=== PATIENT | female | born 1985 | race Caucasian/White ===

== ENCOUNTER → 2016-10-18 | Outpatient (REF) | payer OTHER | LOC: M SFHCCLAY 15:47 | PROVIDERS: ATTEND Family Medicine | DX: R87.612 Low grade squamous intraepithelial lesion on cytologic smear of cervix (LGSIL) (principal) | CPT/HCPCS: 87070; 87491; 87591; G0123 ==

== ENCOUNTER → 2017-06-06 | Outpatient (REF) | payer OTHER | LOC: M SFHCCLAY 15:45 | PROVIDERS: ATTEND Family Medicine | DX: Z12.4 Encounter for screening for malignant neoplasm of cervix (principal); R87.612 Low grade squamous intraepithelial lesion on cytologic smear of cervix (LGSIL) ==

== ENCOUNTER → 2017-12-05 | Outpatient (CLI) | payer BC | LOC: M RAD 17:01 | DX: M25.561 Pain in right knee (principal); S83.31XA Tear of articular cartilage of right knee, current, initial encounter; W18.30XA Fall on same level, unspecified, initial encounter; Y92.009 Unspecified place in unspecified non-institutional (private) residence as the place of occurrence of the external cause | CPT/HCPCS: 73721 ==

== ENCOUNTER → 2018-08-22 | Outpatient (REF) | payer BC ==
[2018-08-22 19:12] LABS: BASO % 0.3 % (0.0-1.0); EOS # 0.1 10^3/uL (0.0-0.50); EOS % 1.4 % (0.0-3.0); HEMOGLOBIN 13.7 g/dl (12.0-15.5); LYMPH # 2.7 10^3/uL (1.5-4.5); MEAN CORPUSCULAR HEMOGLOBIN 31.6 pg (27.0-33.0); MEAN CORPUSCULAR HGB CONC 34.3 g/dl (32.0-36.5); MEAN CORPUSCULAR VOLUME 92.2 fl (80.0-96.0); MONO # 0.9 10^3/uL (0.0-0.8); MONO % 11.5 % (0.0-5.0); NEUTROPHILS # 4.1 10^3/uL (1.8-7.7); NEUTROPHILS % 52.4 % (36.0-66.0); PLATELET COUNT, AUTOMATED 315 10^3/uL (150-450); RED BLOOD COUNT 4.34 10^6/uL (4.00-5.40); WHITE BLOOD COUNT 7.9 10^3/uL (4.0-10.0)
[2018-08-22 20:40] LABS: CHLAMYDIA DNA AMPLIFICATION NEGATIVE (NEGATIVE); GC DNA AMPLIFICATION NEGATIVE (NEGATIVE)
[2018-08-24 12:53] LABS: HEPATITIS C VIRUS ABY INDEX 0.1 INDEX (<0.8); HIV 1&2 SCREEN CENTAUR NEGATIVE (NEGATIVE); RUBELLA IgG QUALITATIVE IMMUNE (IMMUNE)
== END ==
LOC: M LAB REF 08:25
PROVIDERS: ATTEND Advanced Practice Midwife
DX: Z3A.08 8 weeks gestation of pregnancy (principal); Z34.01 Encounter for supervision of normal first pregnancy, first trimester

== ENCOUNTER → 2018-09-18 | Outpatient (REF) | payer BC ==
[2018-09-21 14:22] LABS: HPV HYBRID CAPTURE II Positive (Negative)
== END ==
LOC: M LAB REF 13:18
PROVIDERS: ATTEND Specialist
DX: Z12.4 Encounter for screening for malignant neoplasm of cervix (principal); R87.612 Low grade squamous intraepithelial lesion on cytologic smear of cervix (LGSIL); N87.0 Mild cervical dysplasia; Z11.51 Encounter for screening for human papillomavirus (HPV)
CPT/HCPCS: 87624; G0123

== ENCOUNTER → 2018-09-19 | Outpatient (REF) | payer BC ==
[2018-09-21 10:27] LABS: TOXOPLASMA IgG ABY <3.0 IU/mL (0.0-7.1)
== END ==
LOC: M LAB REF 19:03
PROVIDERS: ATTEND Specialist
DX: Z34.82 Encounter for supervision of other normal pregnancy, second trimester (principal); Z3A.00 Weeks of gestation of pregnancy not specified

== ENCOUNTER → 2018-09-25 | Outpatient (CLI) | payer BC | LOC: M SMT 08:11 | PROVIDERS: ATTEND Specialist | DX: Z13.71 Encounter for nonprocreative screening for genetic disease carrier status (principal) ==

== ENCOUNTER → 2018-11-06 | Outpatient (CLI) | payer BC ==
--- NOTE | 2018-11-06 15:27 | REP ---
REASON: anatomy. PRIORS: None. Multiple ultrasonographic images of the gravid uterus show a single living intrauterine gestation in the cephalic presentation. Doppler interrogation of the heart shows a heart rate of 149 beats per minute. The placenta is anterior and now low lying. The cervix measures 3.2 cm in length and is closed. The subjective amniotic fluid volume is within normal limits. Evaluation of the maternal adnexal spaces showed no abnormalities. BPD 4.3 cm = 19 weeks 0 days HC 15.9 cm = 18 weeks 5 days AC 13.1 cm = 18 weeks 5 days FL 2.9 cm = 18 weeks 8 days The estimated weight is 256 grams which is at the 18th percentile for a 19 week 4 day gestational age. anatomical structures seen as unremarkable are as follows: Thalami, cavum septum pellucidum, cerebellum, cisterna magna, spine, cord insertion, three vessel umbilical cord, stomach, four chamber heart, ventricular outflow tracts, and extremities. The structures suboptimally visualized are as follows: Urinary bladder, upper lip, and the kidneys. IMPRESSION: Single living intrauterine gestation as described above with an estimated gestational age of 18 weeks 6 days via composite criteria and an estimated date of delivery of 04/03/2019 by today's exam. No anomalies were detected, however, I recommend a followup examination to better visualize those structures not well seen today as described above. Electronically Signed by Jordin Small DO 11/06/2018 04:07 P
== END ==
LOC: M RAD 13:45
PROVIDERS: ATTEND Specialist
DX: Z34.82 Encounter for supervision of other normal pregnancy, second trimester (principal); Z3A.18 18 weeks gestation of pregnancy

== ENCOUNTER → 2018-11-30 | Outpatient (CLI) | payer BC ==
--- NOTE | 2018-11-30 15:56 | REP ---
Obstetric sonography: History: Supervision of for anatomy. Findings: Scanning through the gravid uterus demonstrates a viable single intrauterine gestation in a cephalic lie. motion is observed. heart rate is recorded at 149 beats per minute. An anterior grade 0 placenta is seen without evidence of previa. Amniotic fluid is subjectively normal. Closed cervical length is 3.6 cm. No extrauterine abnormality is observed. There has been appropriate interval growth. spine is less than optimally seen today due to position, however, spine was visualized previously. The following anatomic structures are again identified and felt to be unremarkable: cranium, choroid plexus, cavum, cerebellum and posterior fossa, face and profile, lungs, four-chamber heart with left and right ventricular outflow tract views, diaphragm, left-sided stomach, abdominal wall cord insertion, three-vessel umbilical cord, kidneys and bladder, upper and lower extremities. Biometry chart: BPD 5.4 cm = 22 weeks 3 days HC 19.3 cm = 21 weeks 4 days AC 18.0 cm = 22 weeks 6 days FL 4.0 cm = 23 weeks 0 days HL 3.6 cm = 22 weeks 4 days HC/AC ratio normal 1.07. Cephalic index normal 0.79. Estimated weight 532 grams, 1 pound 2 ounces, 38th percentile for 23 weeks 0 days. Impression: Viable single intrauterine gestation at 22 weeks 3 days by today's composite criteria. Expected gestational age estimate based on prior sonography is 22 weeks 2 days. THADDEUS by prior sonography April 03, 2019. There has been appropriate interval growth. Electronically Signed by Elver Hameed MD 11/30/2018 07:59 P
== END ==
LOC: M RAD 12:01
PROVIDERS: ATTEND Advanced Practice Midwife
DX: Z34.82 Encounter for supervision of other normal pregnancy, second trimester (principal); Z3A.22 22 weeks gestation of pregnancy

== ENCOUNTER → 2018-12-26 | Outpatient (REF) | payer BC ==
[2018-12-26 20:47] LABS: HEMATOCRIT 37.5 % (36.0-47.0); HEMOGLOBIN 12.7 g/dl (12.0-15.5); MEAN CORPUSCULAR HEMOGLOBIN 32.4 pg (27.0-33.0); MEAN CORPUSCULAR HGB CONC 33.9 g/dl (32.0-36.5); MEAN CORPUSCULAR VOLUME 95.7 fl (80.0-96.0); PLATELET COUNT, AUTOMATED 283 10^3/uL (150-450); RED BLOOD COUNT 3.92 10^6/uL (4.00-5.40); WHITE BLOOD COUNT 9.7 10^3/uL (4.0-10.0)
== END ==
LOC: M LAB REF 18:56
PROVIDERS: ATTEND Advanced Practice Midwife
DX: Z34.02 Encounter for supervision of normal first pregnancy, second trimester (principal); Z3A.00 Weeks of gestation of pregnancy not specified

== ENCOUNTER → 2019-03-05 | Outpatient (REF) | payer BC | LOC: M LAB REF 12:40 | PROVIDERS: ATTEND Advanced Practice Midwife | DX: Z34.03 Encounter for supervision of normal first pregnancy, third trimester (principal) ==

== ENCOUNTER → 2019-03-06 | Outpatient (REF) | payer BC | LOC: M LAB REF 19:04 | PROVIDERS: ATTEND Advanced Practice Midwife | DX: Z34.03 Encounter for supervision of normal first pregnancy, third trimester (principal) ==

== ENCOUNTER 2019-03-22 23:07 | Inpatient (IN) | payer BC ==
[~2019-03-22] VITALS: Ht 170.2 cm; Wt 77.6 kg
[2019-03-23] VITALS (7 sets, daily range): BP systolic 109–122; BP diastolic 65–90
[2019-03-23] MEDS ORDERED: LACTATED RINGER'S 1000 ML IV STA (00:07)
[2019-03-23] MEDS ORDERED: BUTORPHANOL 2 MG/ML INJ (J0595) IV ONE (00:15)
[2019-03-23] MEDS ORDERED: PROMETHAZINE INJ 25 MG/ML VIAL (J2550) IV ONE (00:15)
--- NOTE | 2019-03-23 00:21 | HPEPDOC ---
Obstetrical History & Physical General Date of Admission March 22, 2019 History of Present Illness Chief Complaint: Contractions, term Information Provided By: Patient Age: 33 : 1 Term: 0 Pre-term: 0 Abortions: 0 Livin Care Care: Good Care Dating Final EDC: Mar 29, 2019 Final EDC by: LMP EGA at Admission: 39 Antepartum Course Height (inches): 67 Pre- weight (lbs.): 145 Admission Weight (lbs.): 171 Past Medical History Past Obstetrical History : Past Obstetrical History: Primgravida [employer] History: Abnormal Pap (LEEP 2013) Past Medical History Surgical History: Tonsilectomy Family History Significant Family History: No pertinent family hx Social History Marital Status: Single Family situation: Spouse/partner home Psychosocial History: No pertinent psych hx * Smoker: non-smoker Alcohol: Denies Drugs: denies Abuse Violence Screening Have you been hit/kicked/slapp: No Have you been sexually assault: No Imunizations Tdap status: current Allergies Coded Allergies: MS - Amoxicillin (Verified Allergy, Severe, ANAPHYLAXIS, 11/11/15) Physical Examination Physical Examination GENERAL: Alert and oriented times three. BREAST: . ABDOMEN: Gravid and non-tender to touch. FETUS: Is vertex (VTX) by sterile vaginal examination (SVE), fetus is vertex (V TX) by Maxime. HEART RATE: Regular rate and rhythm. LUNGS: Clear to auscultation (CTA). EXTREMITIES: No edema. No clonus. Deep tendon reflexes (DTRs) + 2. Pertinent Laboratoy Data Blood Type: O+ RBC Antibody Screen: Negative HIV: Negative Hepatitis B: Negative Hepatitis C: Negative Rapid Plasma Reagin: Nonreactive Rubella: Immune Chlamydia/Gonorrhea: Negative Group B Streptococcus: Negative Quad Screen Test: Negative (Panorama low risk) Glucose Tolerance Test: 99 Anatomy Ultrasound Ultrasound Date: Nov 06, 2018 Placenta Location: Anterior Normal Anatomy: Yes Placenta Previa: No Estimated Weight (grams): 256 Other Ultrasounds 08/22/18 dating 7w6d 11/30/18 f/u anatomy 532gm 38% 03/05/19 Vertex Steroid Therapy Steroid Therapy: No Vaginal Examination Dilation: 3 cm (-4) Effacement: 90% Station: -1 Cervical Consistency: Medium Cervical Position: Middle Presentation: Cephalic presentation Assessment Heart Rate (FHR): 150 Variability: Moderate Accelerations: Positive Decelerations: None Tocometer Frequency: every 2-5 min. Duration: greater than 60 seconds Strength: palpated as moderate Assessment/Plan Assessment Amelia is a 33-year-old (G)1 para (P)0-0-0-0 at 39+0 weeks by 7-week ultrasound. Presents to Labor and Delivery (L&D) with reports of UC since 1700. States she had an accupuncture appt today. Denies LOF or bleeding, fetus is active. Plan Admit and orient. Assignment Agent and consent. Diet: regular. Group B Streptococcus (GBS) negative. Labs and intravenous (IV) per unit protocol. Counseled on Pitocin and induction of labor (IOL). Lactated Ringers (LR): Bolus 500 mL, then saline lock. Plans to labor ad tracy Anticipate normal spontaneous delivery (). C-S as appropriate. Shannon Quiñones CNM Mar 23, 2019 00:21
[2019-03-23 00:42] LABS: HEMATOCRIT 37.6 % (36.0-47.0); HEMOGLOBIN 13.1 g/dl (12.0-15.5); MEAN CORPUSCULAR HEMOGLOBIN 32.9 pg (27.0-33.0); MEAN CORPUSCULAR HGB CONC 34.8 g/dl (32.0-36.5); MEAN CORPUSCULAR VOLUME 94.5 fl (80.0-96.0); PLATELET COUNT, AUTOMATED 264 10^3/uL (150-450); RED BLOOD COUNT 3.98 10^6/uL (4.00-5.40); WHITE BLOOD COUNT 12.6 10^3/uL (4.0-10.0)
[2019-03-23] MEDS ORDERED: OXYTOCIN 30 UNITS IN 0.9% NaCl 500ML IV BAG (J2590) As Ordered ONE (04:29)
[2019-03-23] MEDS ORDERED: OXYTOCIN DRIP 30 UNITS in IV 1 EA IV SCH (04:30)
--- NOTE | 2019-03-23 04:36 | IPNPDOC ---
Text Note Date of Service The patient was seen on 03/23/19. NOTE UC 3-5 minutes apart FH 150, Cat I SVE /-1 Pitocin augmentation VS,Fishbone, I+O VS, Fishbone, I+O Laboratory Tests 03/23/19 00:17 Red Blood Count 3.98 L, Mean Corpuscular Volume 94.5, Mean Corpuscular Hemoglobin 32.9, Mean Corpuscular Hemoglobin Concent 34.8, Red Cell Distribution Width 13.2 Vital Signs Date Time Temp Pulse Resp B/P (MAP) Pulse Ox O2 Delivery O2 Flow Rate FiO2 03/23/19 01:49 16 I&O- Last 24 Hours up to 6 AM 03/23/19 06:00 Intake Total 500 ml Output Total 600 ml Balance -100 ml Shannon Quiñones CNM Mar 23, 2019 04:36
[2019-03-23] MEDS: LR 1,000 ML IV SCH ×2 (04:39→20:30)
[2019-03-23] MEDS ORDERED: FENTANYL 2MCG/ML ROPIVACAINE 0.2% IN 0.9% NACL 100ML IVBAG As Ordered ONE (06:08)
[2019-03-23 07:37] LABS: CORD GAS ABE V -6.6; CORD GAS HCO3 V 18.4 MEQ/L; CORD GAS O2 SAT V 92.1 %; CORD GAS PCO2 V 35.4 mmHg; CORD GAS PH V 7.333 UNITS; CORD GAS PO2 V 50.7 mmHg; CORD GAS SBC V 19.1 MEQ/L; CORD GAS TCO2 V 19.5 MEQ/L
[2019-03-23 07:39] LABS: CORD GAS ABE A -6.5; CORD GAS HCO3 A 21.9 MEQ/L; CORD GAS O2 SAT A 64.6 %; CORD GAS PCO2 A 54.5 mmHg; CORD GAS PH A 7.221 UNITS; CORD GAS PO2 A 28.5 mmHg; CORD GAS SBC A 18.4 MEQ/L; CORD GAS TCO2 A 23.5 MEQ/L
[2019-03-23] MEDS ORDERED: DOCUSATE SODIUM 100 MG CAP PO PRN (08:00)
[2019-03-23] MEDS ORDERED: ACETAMINOPHEN 500 MG TAB PO PRN (08:00)
[2019-03-23] MEDS ORDERED: ACETAMINOPHEN TAB 650MG DOSE (2X325MG) PO PRN (08:00)
[2019-03-23] MEDS ORDERED: METHYLERGONOVINE MALEATE 0.2 MG TAB PO PRN (08:00)
[2019-03-23] MEDS ORDERED: DIBUCAINE 1% OINTMENT 30GM TOP PRN (08:00)
[2019-03-23] MEDS ORDERED: IBUPROFEN 600 MG TAB PO PRN (08:00)
[2019-03-23] MEDS ORDERED: RHOGAM 300 MCG (1500 IU) INJ (J2790) IM SCH (08:00)
[2019-03-23] MEDS ORDERED: MEASLES,MUMPS,RUBELLA VACCINE INJ (MMR-II) (90707) SC SCH (08:00)
[2019-03-23] MEDS ORDERED: LIDOCAINE 1% MDV 20ML VIAL INFIL ONE (08:00)
--- NOTE | 2019-03-23 08:20 | DN ---
DATE OF DELIVERY: 03/23/2019 PREDELIVERY DIAGNOSIS: 39 weeks 1 day estimated gestational age. POSTDELIVERY DIAGNOSIS: Delivered. PROCEDURE: Spontaneous vaginal delivery. PROVIDER: Beverly Schulz DO PGY-3. STUDIO TECHNICIAN VIDEO OPERATOR: Shannon Quiñones CNM ANESTHESIA: 1% lidocaine local postdelivery. ESTIMATED BLOOD LOSS: 200 mL. FINDINGS: Female weighing 7 pounds 1 ounce or 3210 grams, Apgars 9 and 9. DELIVERY SUMMARY: After a short second stage, the patient spontaneously delivered a 7 pound 1 ounce female infant, weighing 3210 grams, without anesthesia at 0722 hours. The infant delivered straight occiput anterior and restituted right occiput transverse. There was no nuchal cord. The shoulders delivered with ease followed by the corpus. The infant cried spontaneously and was handed to the mother. Apgars were 9 and 9. The cord was doubly clamped and cut by the father of the baby. The placenta was delivered spontaneously via George mechanism at 0728 hours and appeared to be intact. The patient received IV Pitocin immediately after delivery of the placenta. The patient had small bilateral abrasions of the labia, the left one was repaired with three interrupted sutures of #3-0 Rapide. Sponge counts were correct. Arterial blood gas pH 7.221 (BE -6.5), Venous blood gas pH 7.333 (BE -6.6) The parents have named their baby CHAPINCITO
[2019-03-23] MEDS: IBUPROFEN 800 MG TAB PO PRN ×2 (08:24→18:06)
[2019-03-23] MEDS: PRENATAL VITAMINS CHEWABLE TABLET PO SCH (09:00)
[2019-03-23] MEDS ORDERED: SLF 3 ML SYR IV PRN (09:30)
[2019-03-24] MEDS: LR 1,000 ML IV SCH (04:26)
[2019-03-24 06:45] VITALS: BP 100/59
[2019-03-24] MEDS: PRENATAL VITAMINS CHEWABLE TABLET PO SCH (09:22)
[2019-03-24] MEDS ORDERED: IBUP80TA PO (09:58)
[2019-03-24] MEDS ORDERED: ACET-683 PO (09:58)
[2019-03-24] MEDS: IBUPROFEN 800 MG TAB PO PRN (14:19)
== END 2019-03-24 15:45 | disposition home or self-care (01) | DRG 560 ==
LOC: M LDO 23:07 → M LDI 03-23 00:27 → M OBS 03-23 09:09
PROVIDERS: ADMIT Advanced Practice Midwife; ATTEND Advanced Practice Midwife
PROC: 10E0XZZ Delivery of Products of Conception, External Approach (ICD-10-PCS; principal; 2019-03-23)
DX: O80 Encounter for full-term uncomplicated delivery (principal); Z3A.39 39 weeks gestation of pregnancy; Z37.0 Single live birth

== ENCOUNTER → 2019-06-04 | Outpatient (REF) | payer BC ==
[~2019-06-04] MED LIST: ACET-683 PO; IBUP80TA PO
[2019-06-06 14:51] LABS: HPV HYBRID CAPTURE II Negative (Negative)
== END ==
LOC: M LAB REF 17:47
PROVIDERS: ATTEND Advanced Practice Midwife
DX: Z12.4 Encounter for screening for malignant neoplasm of cervix (principal)
CPT/HCPCS: 87624; G0123

== ENCOUNTER → 2020-09-22 | Outpatient (REF) | payer BC | LOC: M SFHCWAGY 17:14 | PROVIDERS: ATTEND Specialist | DX: Z12.4 Encounter for screening for malignant neoplasm of cervix (principal) ==

== ENCOUNTER → 2020-10-07 | Outpatient (REF) | payer BC | LOC: M SFHCCLAY 15:25 | PROVIDERS: ATTEND Nurse Practitioner Family | DX: R39.89 Other symptoms and signs involving the genitourinary system (principal) ==

== ENCOUNTER → 2021-04-29 | Outpatient (REF) | LOC: M EMP 16:11 | PROVIDERS: ATTEND Family Medicine | DX: Z11.52 Encounter for screening for COVID-19 (principal) ==

== ENCOUNTER → 2021-09-28 | Outpatient (REF) | payer BC | LOC: M PLALAB 10:33 | PROVIDERS: ATTEND Specialist | DX: Z12.4 Encounter for screening for malignant neoplasm of cervix (principal) ==

== ENCOUNTER → 2023-06-20 | Outpatient (REF) | payer OTHER | LOC: M SFHCWAGY 13:11 | PROVIDERS: ATTEND Nurse Practitioner Family | DX: Z12.4 Encounter for screening for malignant neoplasm of cervix (principal) | CPT/HCPCS: 87624; G0123 ==